=== PATIENT | female | born 1980 | race African-American/Black ===

== ENCOUNTER 2016-10-14 23:04 | Emergency (ER) | payer OTHER ==
[~2016-10-14] VITALS: Ht 157.5 cm; Wt 65.4 kg
[2016-10-15] MEDS ORDERED: SKELAXIN800 MG PO (00:29)
[2016-10-15] MEDS ORDERED: NAPROXEN500 MG PO (00:29)
[2016-10-15 00:37] VITALS: BP 160/101
== END 2016-10-15 00:38 | disposition home or self-care (01) ==
LOC: EME 23:04
DX: M62.830 Muscle spasm of back (principal); M54.5 Low back pain; M54.2 Cervicalgia; V49.40XA Driver injured in collision with unspecified motor vehicles in traffic accident, initial encounter
CPT/HCPCS: 99281; 99284